=== PATIENT | female | born 2000 | race Caucasian/White ===

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

== ENCOUNTER 2019-08-26 10:09 | Emergency (ER) | payer SELFPAY ==
--- NOTE | 2019-08-26 10:12 | UC ---
Hand/Wrist HPI - HPI Summary HPI Summary: 19 yo female presents with RIGHT hand injury. 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 Noted some swelling today as well. Pain with moving her fingers, but feels better today compared to yesterday. Little to no pain at rest. She is right handed. She is requesting a note to be out of work tomorrow to rest her hand. - History Of Current Complaint Stated Complaint: RIGHT HAND INJURY (WC) Time Seen by Provider: 08/26/19 10:12 Hx Obtained From: Patient Onset/Duration: Sudden Onset Severity Initially: Moderate Severity Currently: Mild Pain Intensity: 4 Pain Scale Used: 0-10 Numeric - Allergies/Home Medications Allergies/Adverse Reactions: Allergies Allergy/AdvReac Type Severity Reaction Status Date / Time No Known Allergies Allergy Verified 08/26/19 10:17 Home Medications: Home Medications Control Pill 1 tab PO DAILY 08/11/18 [History Confirmed 08/26/19] PMH/Surg Hx/FS Hx/Imm Hx - Additional Past Medical History Additional PMH: None - Surgical History Surgical History: None - Family History Known Family History: Positive: None - Social History Occupation: Employed Full-time Lives: With Family Alcohol Use: None Substance Use Type: None Smoking Status (MU): Never Smoked Tobacco Household Exposure Type: Cigarettes - Immunization History Most Recent Influenza Vaccination: no Vaccination Up to Date: Yes Review of Systems All Other Systems Reviewed And Are Negative: No Constitutional: Positive: Negative Skin: Positive: Bruising - hand Respiratory: Positive: Negative Cardiovascular: Positive: Negative Neurovascular: Positive: Negative Musculoskeletal: Positive: Other: - Right hand injury Neurological/Mental Status: Positive: Negative Psychological: Positive: Negative Physical Exam - Summary Physical Exam Summary: GENERAL: NAD. WDWN. No pain distress. SKIN: No rashes, sores, lesions, or open wounds. CHEST: No accessory muscle use. Breathing comfortably and in no distress. CV: Pulses intact radial and ulnar. Cap refill <2seconds MSK: RIGHT HAND: Dorsal aspect overlying 2nd-5th MCs with mild edema and faint ecchymosis. Mildly TTP. FROM all digits. Strength 5/5 including windshield wiper repairer strength. No snuffbox tenderness. NEURO: Alert. Sensations intact hand and all fingers. PSYCH: Age appropriate behavior. Triage Information Reviewed: Yes Vital Signs: Vital Signs: Temp Pulse Resp BP Pulse Ox 98 F 90 16 154/75 98 08/26/19 10:16 08/26/19 10:16 08/26/19 10:16 08/26/19 10:16 08/26/19 10:16 Vital Signs Reviewed: Yes Diagnostics - Radiology Hand XR Radiology Interpretation Completed By: Radiologist Summary of Radiographic Findings: IMPRESSION: NO ACUTE OSSEOUS INJURY. IF SYMPTOMS PERSIST, RECOMMEND REPEAT IMAGING. Hand/Wrist Course/Dx - Course Course Of Treatment: XR negative as above. Suspect contusion to hand. Advised continued RICE therapy and will provide her with a note off work for tomorrow. - Differential Dx/Diagnosis Provider Diagnosis: Contusion, hand Discharge ED - Sign-Out/Discharge Documenting (check all that apply): Patient Departure All imaging exams completed and their final reports reviewed: Yes - Discharge Plan Condition: Stable Disposition: HOME Patient Education Materials: Contusion in Adults (ED) Forms: *Work Release Referrals: No Primary Care Phys,NOPCP [Primary Care Provider] - Additional Instructions: If you develop a fever, shortness of breath, chest pain, new or worsening symptoms - please call your PCP or go to the ED immediately. Your blood pressure was high at todays visit. Please see your primary provider within 4 weeks for recheck and re-evaluation. Continue to rest, ice, and elevate your hand for the next 2-3 days to reduce pain and swelling - Billing Disposition and Condition Condition: STABLE Disposition: Home - Attestation Statements Provider Attestation: This patient was not seen by me. I was available for consult. Chart reviewed. KEYLA
[2019-08-26 10:23] VITALS: BP 154/75
== END 2019-08-26 10:48 | disposition home or self-care (01) ==
LOC: UCCORT 10:09
DX: S60.221A Contusion of right hand, initial encounter (principal); W22.8XXA Striking against or struck by other objects, initial encounter; Y92.9 Unspecified place or not applicable; Y99.0 Civilian activity done for income or pay
CPT/HCPCS: 99211; G0463